=== PATIENT | female | born 1965 | race African-American/Black ===

== ENCOUNTER 2018-02-21 20:25 | Emergency (ER) | payer OTHER ==
[2018-02-21] MEDS ORDERED: MORPHINE SULFATE 4 MG INJ IV ONE ×2 (20:58→22:00)
[2018-02-21] MEDS ORDERED: Phenergan 25 MG INJ IV ONE ×2 (20:58→23:44)
[2018-02-21] MEDS ORDERED: Sodium Chloride 0.9% 1000 ML 1,000 ML IV STA ×2 (20:58→22:11)
--- NOTE | 2018-02-21 21:03 | ERPHSYRPT ---
- History of Present Illness Time Seen by Provider: 02/21/18 20:53 Historian: patient Exam Limitations: no limitations Patient Subjective Stated Complaint: Pt arrives to ER with c/o RLQ abdominal pain that began last night. pt points to pannus for pain that is asymmetrical with surigical scars from GB surgery and hernia repair. Also c/o nausea without vomiting. Also mentions "just a little bit" of dysuria. States last BM today and normal. Denies diarrhea or constipation. Also denies fever, hematuria or any other sx. Triage Nursing Assessment: pt is obese with surgical scars where pt points to pain on RLQ abdomen/pannus. Pt dyspneic with exertion and appears uncomfortable. Physician History: 52-year-old morbidly obese white female arrives with complaint of pain in her right lower quadrant symptoms since yesterday she states she has had nausea she denies vomiting she states that she's had some dysuria. Past medical history includes diabetes type 2, seizures, high blood pressure, breast cancer, anxiety, depression. Past surgical history includes cholecystectomy, hernia repair, hysterectomy, right shoulder surgery Timing/Duration: yesterday Activities at Onset: none Quality: cramping Abdominal Pain Onset Location: RLQ Pain Radiation: no radiation Severity of Pain-Max: moderate Severity of Pain-Current: moderate Modifying Factors: Improves With: nothing Associated Symptoms: nausea, No back, No chest pain, No diaphoresis, No diarrhea , No fever/chills, No fatigue, No headache, No heartburn, No loss of appetite, No neck pain, No rash, No shortness of breath, No syncope, No vomiting, No weakness Previous symptoms: no prior history Allergies/Adverse Reactions: dicyclomine [From Bentyl] Allergy (Verified 02/21/18 20:54) Rash fentanyl Allergy (Verified 02/21/18 20:54) Rash ketorolac [From Toradol] Allergy (Verified 02/21/18 20:54) Rash meperidine [From Demerol] Allergy (Verified 02/21/18 20:54) Rash tramadol Allergy (Verified 02/21/18 20:54) Rash acetaminophen [From Percocet] Adverse Reaction (Verified 02/21/18 20:54) Vomiting codeine Adverse Reaction (Verified 02/21/18 20:54) Vomiting metoclopramide [From Reglan] Adverse Reaction (Verified 02/21/18 20:54) chest pain ondansetron [From Zofran] Adverse Reaction (Verified 02/21/18 20:54) chest pain oxycodone [From Percocet] Adverse Reaction (Verified 02/21/18 20:54) Vomiting Sulfa (Sulfonamide Antibiotics) Adverse Reaction (Verified 02/21/18 20:54) Vomiting Home Medications: Enalapril Maleate 10 mg [Vasotec 10 MG] 10 mg PO DAILY 02/21/18 [History] Ergocalciferol (Vitamin D2) [Vitamin D2] 50,000 units PO WEEKLY 02/21/18 [ History] Insulin Aspart [NovoLOG Insulin] 32 units SQ TID 02/21/18 [History] Insulin Glargine,Hum.rec.anlog [Basaglar Kwikpen U-100] 55 units SQ BID [History] Linagliptin [Tradjenta] 5 mg PO DAILY 02/21/18 [History] Simvastatin [Simvastatin] 40 mg PO DAILY 02/21/18 [History] Venlafaxine HCl ER 75 mg [Effexor XR 75 MG] 75 mg PO DAILY 02/21/18 [ History] levETIRAcetam [Levetiracetam] 750 mg PO BID 02/21/18 [History] - Review of Systems Constitutional: No Fever, No Chills Eyes: No Symptoms Ears, Nose, & Throat: No Symptoms Respiratory: No Cough, No Dyspnea Cardiac: No Chest Pain, No Edema, No Syncope Abdominal/Gastrointestinal: Abdominal Pain, Nausea, No Vomiting, No Diarrhea, No Constipation, No Hematemesis, No Hematochezia, No Melena, No Dysphagia, No Appetite Changes Genitourinary Symptoms: Dysuria, Frequency, No Hematuria, No Hesitancy, No Incontinence, No Urgency, No Urinary Retention, No Flank Pain, No Menorrhagia, No , No Vaginal Bleeding, No Vaginal Discharge Musculoskeletal: No Back Pain, No Neck Pain Skin: No Rash Neurological: No Dizziness, No Focal Weakness, No Sensory Changes Psychological: No Symptoms Endocrine: No Symptoms All Other Systems: Reviewed and Negative - Past Medical History Pertinent Past Medical History: Yes Neurological History: Seizures ENT History: No Pertinent History Cardiac History: Hypertension Respiratory History: No Pertinent History Endocrine Medical History: Diabetes Type II Musculoskeletal History: No Pertinent History GI Medical History: No Pertinent History History: No Pertinent History Psycho-Social History: Anxiety, Depression Female Reproductive Disorders: Breast Cancer - Past Surgical History Past Surgical History: Yes Neuro Surgical History: No Pertinent History Cardiac: No Pertinent History Respiratory: No Pertinent History Gastrointestinal: Cholecystectomy, Hernia Repair Genitourinary: No Pertinent History Musculoskeletal: Joint Replacement, Orthopedic Surgery Female Surgical History: Hysterectomy Other Surgical History: right shoulder sugery, - Social History Smoking Status: Current every day smoker How long have you smoked: 20 Exposure to second hand smoke: Yes Drug Use: none Patient Lives Alone: No - Female History Hx Now: No - Nursing Vital Signs Nursing Vital Signs: Initial Vital Signs Temperature 99 F 02/21/18 20:39 Pulse Rate 104 H 02/21/18 20:39 Respiratory Rate 24 02/21/18 20:39 Blood Pressure 154/90 02/21/18 20:39 O2 Sat by Pulse Oximetry 96 02/21/18 20:39 Pain Scale Pain Intensity 8 - Physical Exam General Appearance: moderate distress Eye Exam: PERRL/EOMI, eyes nml inspection Ears, Nose, Throat Exam: normal ENT inspection, pharynx normal, moist mucous membranes Neck Exam: normal inspection, non-tender, supple, full range of motion Respiratory Exam: normal breath sounds, lungs clear, No respiratory distress Cardiovascular Exam: regular rate/rhythm, normal heart sounds Gastrointestinal/Abdomen Exam: soft, tenderness (rlq tenderness), other (multip[ le well healed abdominal incisions right lower quadrant), No mass Back Exam: normal inspection, normal range of motion, No CVA tenderness, No vertebral tenderness Extremity Exam: normal inspection, normal range of motion, pelvis stable Neurologic Exam: oriented x 3, cooperative, normal mood/affect, nml cerebellar function, sensation nml, No motor deficits SpO2: 96 Oxygen Delivery: Room Air - Course Nursing assessment & vital signs reviewed: Yes - CT Exams Abdomen/Pelvis CT Interpretation: Tele-radiologist Report (CT of the abdomen and pelvis impression large ventral hernia containing multiple loops of small bowel without definite evidence of obstruction. There may be some hernia mesh at the left lateral aspect of the hernia which may indicate prior failed repair . there is a low density soft tissue or high density fluid area along the mesh that could represent aqbdominal wall muscularure, scarring, or possibly a fluid collection , noter that the hernia is incompletely evaluated anteriorly secondary to obesity., with the patient's anterior abdomen not fitting entirely within the scanners field of view.) Ordered Tests: Active Orders 24 hr Category Date Time Status Accucheck STAT Care 02/21/18 22:05 Active Accucheck STAT Care 02/21/18 23:20 Active Accucheck STAT Care 02/22/18 00:43 Active IV Insertion STAT Care 02/21/18 20:57 Active ABDOMEN AND PELVIS W/0 CONTRAS [CT] Stat Exams 02/21/18 20:57 Taken AMYLASE Stat Lab 02/21/18 21:44 Completed ARTERIAL BLOOD GASES Stat Lab 02/21/18 22:53 Completed CBC W DIFF Stat Lab 02/21/18 21:44 Completed CMP Stat Lab 02/21/18 21:44 Completed LIPASE Stat Lab 02/21/18 21:44 Completed UA W/RFX UR CULTURE Stat Lab 02/21/18 21:45 Completed Medication Summary Discontinued Medications Generic Name Dose Route Start Last Admin Trade Name Vineetq PRN Reason Stop Dose Admin Sodium Chloride 1,000 mls @ 999 mls/hr 02/21/18 20:58 02/22/18 00:10 Sodium Chloride 0.9% 1000 Ml IV 02/21/18 21:58 Infused .Q1H1M STA Infusion Sodium Chloride Confirm 02/21/18 21:04 Sodium Chloride 0.9% 1000 Ml Administered 02/21/18 21:05 Dose 1,000 mls @ ud .ROUTE .STK-MED ONE Sodium Chloride 1,000 mls @ 999 mls/hr 02/21/18 22:11 02/22/18 00:09 Sodium Chloride 0.9% 1000 Ml IV 02/21/18 23:11 999 mls/hr .Q1H1M STA Administration Sodium Chloride Confirm 02/21/18 22:38 Sodium Chloride 0.9% 1000 Ml Administered 02/21/18 22:39 Dose 1,000 mls @ ud .ROUTE .STK-MED ONE Insulin Human Regular 7 unit 02/21/18 23:24 02/21/18 23:35 Novolin R IV 02/21/18 23:25 7 unit STAT ONE Administration Insulin Human Regular Confirm 02/21/18 23:31 Novolin R Administered 02/21/18 23:32 Dose 7 unit .ROUTE .STK-MED ONE Insulin Human Regular 5 unit 02/22/18 00:46 02/22/18 00:53 Novolin R IV 02/22/18 00:47 5 unit STAT ONE Administration Insulin Human Regular Confirm 02/22/18 00:51 Novolin R Administered 02/22/18 00:52 Dose 5 unit .ROUTE .STK-MED ONE Morphine Sulfate 4 mg 02/21/18 20:58 02/21/18 21:12 Morphine Sulfate 4 Mg Inj IV 02/21/18 20:59 4 mg STAT ONE Administration Morphine Sulfate Confirm 02/21/18 21:04 Morphine Sulfate 4 Mg Inj Administered 02/21/18 21:05 Dose 4 mg .ROUTE .STK-MED ONE Morphine Sulfate 4 mg 02/21/18 22:00 02/21/18 22:06 Morphine Sulfate 4 Mg Inj IV 02/21/18 22:01 4 mg STAT ONE Administration Morphine Sulfate Confirm 02/21/18 22:03 Morphine Sulfate 4 Mg Inj Administered 02/21/18 22:04 Dose 4 mg .ROUTE .STK-MED ONE Morphine Sulfate 2 mg 02/21/18 23:44 02/21/18 23:50 Morphine Sulfate 2 Mg Inj IV 02/21/18 23:45 2 mg STAT ONE Administration Morphine Sulfate Confirm 02/21/18 23:47 Morphine Sulfate 4 Mg Inj Administered 02/21/18 23:48 Dose 4 mg .ROUTE .STK-MED ONE Promethazine HCl 12.5 mg 02/21/18 20:58 02/21/18 21:13 Phenergan 25 Mg Inj IV 02/21/18 20:59 12.5 mg STAT ONE Administration Promethazine HCl Confirm 02/21/18 21:04 Phenergan 25 Mg Inj Administered 02/21/18 21:05 Dose 25 mg .ROUTE .STK-MED ONE Promethazine HCl 12.5 mg 02/21/18 23:44 02/21/18 23:50 Phenergan 25 Mg Inj IV 02/21/18 23:45 12.5 mg STAT ONE Administration Promethazine HCl Confirm 02/21/18 23:46 Phenergan 25 Mg Inj Administered 02/21/18 23:47 Dose 25 mg .ROUTE .STK-MED ONE Lab/Rad Data: Laboratory Result Diagrams 02/21/18 21:44 02/21/18 21:44 Laboratory Results 02/21/18 02/21/18 02/21/18 Range/Units 22:53 21:45 21:44 WBC (4.0-10.5) K/mm3 RBC (4.1-5.4) M/mm3 Hgb (12.0-16.0) gm/dl Hct (35-47) % MCV (78-100) fl MCH (26-32) pg MCHC (32-36) g/dl RDW (11.5-14.0) % Plt Count (150-450) K/mm3 MPV (6-9.5) fl Gran % (36.0-66.0) % Eos # (Auto) (0-0.5) Absolute Lymphs (auto) (1.0-4.6) Absolute Monos (auto) (0.0-1.3) Lymphocytes % (24.0-44.0) % Monocytes % (0.0-12.0) % Eosinophils % (0.00-5.0) % Basophils % (0.0-0.4) % Absolute Granulocytes (1.4-6.9) Basophils # (0-0.4) Puncture Site LEFT BRACHIAL pCO2 52 H (35-45) mmHg pO2 61 L (75-100) mmHg Base Excess 0.3 (-2.0-2.0) O2 Saturation 85.2 L (94-100) g/dF ABG pH 7.33 L (7.35-7.45) ABG HCO3 27.4 (22-28) ABG O2 Sat (Measured) 94.7 L (95-100) % Toby Test NOT APPLICABLE A-a Gradient 74 a/A Ratio 0.45 Hemoglobin 17.2 Carboxyhemoglobin 8.8 H* (0.0-6.9) % THgb Methemoglobin 1.2 L (1.4-1.5) % Temperature 37.0 C POC O2 Flow Rate 28 % Sodium 135 L (137-145) mmol/L Potassium 4.6 4.7 (3.5-5.1) mmol/L Chloride 96 L (98-107) mmol/L Carbon Dioxide 27 (22-30) mmol/L Anion Gap 16.8 H (5-15) MEQ/L BUN 13 (7-17) mg/dL Creatinine 0.73 (0.52-1.04) mg/dL Estimated GFR > 60.0 ML/MIN Glucose 545 H* (74-106) mg/dL Calcium 10.5 H (8.4-10.2) mg/dL Total Bilirubin 0.90 (0.2-1.3) mg/dL AST 15 (14-36) U/L ALT 17 (0-35) U/L Alkaline Phosphatase 169 H (38-126) U/L Serum Total Protein 7.8 (6.3-8.2) g/dL Albumin 4.0 (3.5-5.0) g/dL Amylase 55 (30-110) U/L Lipase 57 (23-300) U/L Ur Collection Type VOID Urine Color YELLOW (YELLOW) Urine Appearance CLEAR (CLEAR) Urine pH 6.0 (5-6) Ur Specific [place] 1.010 (1.005-1.025) Urine Protein NEGATIVE (Negative) Urine Ketones NEGATIVE (NEGATIVE) Urine Blood NEGATIVE (0-5) Dawood/ul Urine Nitrite NEGATIVE (NEGATIVE) Urine Bilirubin NEGATIVE (NEGATIVE) Urine Urobilinogen NORMAL (0-1) mg/dL Ur Leukocyte Esterase NEGATIVE (NEGATIVE) Urine Culture Reflexed NO (NO) Urine Glucose 1000 (NEGATIVE) mg/dL Specimen Received 02/21/18 2145 02/21/18 Range/Units 21:44 WBC 10.9 H (4.0-10.5) K/mm3 RBC 5.77 H (4.1-5.4) M/mm3 Hgb 17.7 H (12.0-16.0) gm/dl Hct 48.3 H (35-47) % MCV 83.7 (78-100) fl MCH 30.6 (26-32) pg MCHC 36.6 H (32-36) g/dl RDW 14.1 H (11.5-14.0) % Plt Count 164 (150-450) K/mm3 MPV 11.9 H (6-9.5) fl Gran % 60.0 (36.0-66.0) % Eos # (Auto) 0.85 H (0-0.5) Absolute Lymphs (auto) 2.62 (1.0-4.6) Absolute Monos (auto) 0.88 (0.0-1.3) Lymphocytes % 23.9 L (24.0-44.0) % Monocytes % 8.0 (0.0-12.0) % Eosinophils % 7.8 H (0.00-5.0) % Basophils % 0.3 (0.0-0.4) % Absolute Granulocytes 6.56 (1.4-6.9) Basophils # 0.03 (0-0.4) Puncture Site pCO2 (35-45) mmHg pO2 (75-100) mmHg Base Excess (-2.0-2.0) O2 Saturation (94-100) g/dF ABG pH (7.35-7.45) ABG HCO3 (22-28) ABG O2 Sat (Measured) (95-100) % Toby Test A-a Gradient a/A Ratio Hemoglobin Carboxyhemoglobin (0.0-6.9) % THgb Methemoglobin (1.4-1.5) % Temperature C POC O2 Flow Rate % Sodium (137-145) mmol/L Potassium (3.5-5.1) mmol/L Chloride (98-107) mmol/L Carbon Dioxide (22-30) mmol/L Anion Gap (5-15) MEQ/L BUN (7-17) mg/dL Creatinine (0.52-1.04) mg/dL Estimated GFR ML/MIN Glucose (74-106) mg/dL Calcium (8.4-10.2) mg/dL Total Bilirubin (0.2-1.3) mg/dL AST (14-36) U/L ALT (0-35) U/L Alkaline Phosphatase (38-126) U/L Serum Total Protein (6.3-8.2) g/dL Albumin (3.5-5.0) g/dL Amylase (30-110) U/L Lipase (23-300) U/L Ur Collection Type Urine Color (YELLOW) Urine Appearance (CLEAR) Urine pH (5-6) Ur Specific [place] (1.005-1.025) Urine Protein (Negative) Urine Ketones (NEGATIVE) Urine Blood (0-5) Dawood/ul Urine Nitrite (NEGATIVE) Urine Bilirubin (NEGATIVE) Urine Urobilinogen (0-1) mg/dL Ur Leukocyte Esterase (NEGATIVE) Urine Culture Reflexed (NO) Urine Glucose (NEGATIVE) mg/dL Specimen Received - Progress Progress: improved Progress Note: 02/21/18 22:13 Patient's glucose over 500 on chemistry, just did an Accu-Chek of 488. Patient receiving normal saline IV second liter ordered. Urine unremarkable other than glucose greater than [address] results patient has received IV morphine 4 mg 2 for pain. Patient has a large ventral hernia containing multiple loops of small bowel without definite evidence of obstruction on CT there may be hernia mesh of the lateral aspect of the hernia which may indicate prior failed repair. There is a low density soft tissue or high density fluid area along the mastectomy could represent abdominal wall musculature, scarring, or possibly a fluid collection the hernia was completely evaluated anteriorly secondary to obesity, with the anterior abdomen not feeling entirely within the scanner field of view. Patient is feeling better I have discussed with her her hernia she is aware of that she has had multiple surgeries secondary dairy to her abdominal hernia. She is planning on going home she states she is feeling better but she states she would like a little more pain medication. Patient's labs did show a glucose of 545 sodium 135 potassium 4.7 chloride 96 bicarbonate 27 BUN 13 creatinine 0.73. Patient's urine was negative except for 1000 mg/dL of glucose Patient white count 10.9 hemoglobin 17.7 hematocrit 48.3 platelets 164 patient will be given 2 L of normal saline IV. Patient has received morphine 4 mg IV 2 Will give her a third dose. She had received Phenergan 12.5 mg IV we'll consider a second dose of this as well or Zofran. him the patient's last Accu-Chek was 468 I have ordered 7 units of IV Humulin R . will recheck patient after her fluids have infused. She does not appera to be in acute distress at this time. 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 02/22/18 00:50 Patient's feeling better, asking when she can go home repeat Accu-Chek 388. Patient still receiving second liter of normal saline. Will give patient another 5 units of Humulin R IV. Plan to recheck in approximately a half an hour plan to discharge if remains stable and doing well. Patient states she will follow-up with her family doctor tomorrow. Patient states she lives in [facility]. 02/22/18 01:02 The patient is feeling much better. She wants to go home. Will plan to discharge and approximately one half hour. Patient states she covers her self with insulin for her sugars . she has been advised of her hyperglycemia and will cover herself. she also was noted to have elevated carboxyhemoglobin f 8.8 she is a smoker. she has been given oxygen in the emergency room, although it is felt that her increased carboxy hemoglobin is due to smoking, she has been advised to ensure her vehicle is well ventilated on her way home. 02/22/18 01:37 The patient's blood sugar is 385, she recieved 5 units of humulin r 30 IV 30 minutes ago. Patient wants to go home, she is in no distress she states she will cover her blood sugars with Insulin, will release - Departure Time of Disposition: 01:38 Departure Disposition: Home Clinical Impression: Right lower quadrant abdominal pain, Hyperglycemia Ventral hernia Qualifiers: Obstruction and gangrene presence: without obstruction or gangrene Qualified Code(s): K43.9 - Ventral hernia without obstruction or gangrene Condition: Fair Critical Care Time: No Referrals: DOCTOR,NO FAMILY [Primary Care Provider] - Additional Instructions: Return home. Plenty of fluids. Clear fluids only 24-48 hours if abdominal pain. Follow-up with your family doctor tomorrow morning. Return for acute distress or for severe symptoms. monitor your blood sugars carefully. Your carboxy hemoglobin level was elevated at this visit, this may be due to smoking, but, it is important that you make sure your vehicle is well ventilated on your way home. Cover your blood sugars as outlined by your family physician.
[2018-02-21] MEDS ORDERED: Sodium Chloride 0.9% 1000 ML 1,000 ML ONE ×2 (21:04→22:38)
[2018-02-21] MEDS ORDERED: Phenergan 25 MG INJ ONE ×2 (21:04→23:46)
[2018-02-21] MEDS ORDERED: MORPHINE SULFATE 4 MG INJ ONE ×3 (21:04→23:47)
[2018-02-21 21:48] LABS: BASOPHIL % 0.3 % (0.0-0.4); Basophil (Absolute #) 0.03 (0-0.4); Eosinophil % 7.8 % (0.00-5.0); Eosinophil (Absolute #) 0.85 (0-0.5); Granulocyte Absolute (ANC) 6.56 (1.4-6.9); Hematocrit 48.3 % (35-47); Hemoglobin 17.7 gm/dl (12.0-16.0); Lymphocyte (Absolute #) 2.62 (1.0-4.6); Lymphocytes % 23.9 % (24.0-44.0); Mean Cell Volume 83.7 fl (78-100); Mean Corpuscular Hgb Concent. 36.6 g/dl (32-36); Mean Platelet Volume 11.9 fl (6-9.5); Monocyte (Absolute #) 0.88 (0.0-1.3); Platelet Count 164 K/mm3 (150-450); Red Blood Count 5.77 M/mm3 (4.1-5.4); Red Cell Distribution Width 14.1 % (11.5-14.0); White Blood Count 10.9 K/mm3 (4.0-10.5)
[2018-02-21 21:50] LABS: Appearance CLEAR (CLEAR); Bilirubin NEGATIVE (NEGATIVE); Blood NEGATIVE Ery/ul (0-5); Glucose 1000 mg/dL (NEGATIVE); Ketones NEGATIVE (NEGATIVE); Leukocyte Esterase NEGATIVE (NEGATIVE); Nitrite NEGATIVE (NEGATIVE); Protein,Urine Dip NEGATIVE (Negative); Urobilinogen NORMAL mg/dL (0-1)
[2018-02-21 21:52] LABS: Mean Corpuscular Hemoglobin 30.6 pg (26-32)
[2018-02-21 22:02] LABS: ALKALINE PHOSPHATASE 169 U/L (38-126); AMYLASE 55 U/L (30-110); ANION GAP 16.8 MEQ/L (5-15); BLOOD UREA NITROGEN 13 mg/dL (7-17); CHLORIDE 96 mmol/L (98-107); Calcium 10.5 mg/dL (8.4-10.2); Carbon Dioxide 27 mmol/L (22-30); Creatinine 1 0.73 mg/dL (0.52-1.04); LIPASE 57 U/L (23-300); Potassium 4.7 mmol/L (3.5-5.1); SGOT/AST 15 U/L (14-36); SGPT/ALT 17 U/L (0-35); SODIUM 135 mmol/L (137-145); Total Protein 7.8 g/dL (6.3-8.2)
[2018-02-21 22:11] LABS: Glucose 545 mg/dL (74-106)
[2018-02-21 23:00] VITALS: PULSE 103
[2018-02-21 23:00] LABS: A-aADO2 74; ABG HEMOGLOBIN 17.2; ABG POTASSIUM 4.6 (3.5-5.1); ARTERIAL BLD GAS O2 SATURATION 94.7 % (95-100); ARTERIAL BLOOD GAS BASE EXCESS 0.3 (-2.0-2.0); ARTERIAL BLOOD GAS FIO2 28 %; ARTERIAL BLOOD GAS PCO2 52 mmHg (35-45); ARTERIAL BLOOD GAS PO2 61 mmHg (75-100); ARTERIAL BLOOD GAS pH 7.33 (7.35-7.45); HCO3- 27.4 (22-28); HGB O2 SAT 85.2 g/dF (94-100); Methhemoglobin 1.2 % (1.4-1.5); paO2 pAO1 0.45
[2018-02-21 23:01] LABS: ABG SITE LEFT BRACHIAL; CARBOXYHEMOGLOBIN 8.8 % THgb (0.0-6.9)
[2018-02-21] MEDS ORDERED: NovoLIN R IV ONE (23:24)
[2018-02-21] MEDS ORDERED: NovoLIN R ONE (23:31)
[2018-02-21] MEDS ORDERED: MORPHINE SULFATE 2 MG INJ IV ONE (23:44)
[2018-02-22] MEDS ORDERED: NovoLIN R IV ONE (00:46)
[2018-02-22] MEDS ORDERED: NovoLIN R ONE (00:51)
[2018-02-22 01:37] VITALS: BP 173/91
[2018-02-22 01:39] VITALS: O2SAT 96
--- NOTE | 2018-02-22 09:03 | XRAY ---
Indication: Right upper quadrant pain. Multiple contiguous axial images obtained through the abdomen and pelvis without contrast as ordered. Comparison: None. Lung bases are clear. Heart is not enlarged. Study is degraded by patient body habitus. Portion of the anterior abdomen could not be included in the [id number]. There is a failed infraumbilical ventral hernia repair with large [place] hernia defect with herniated bowel loops. No incarceration/obstruction. Remaining noncontrasted stomach and bowel loops appear nonobstructed. Previous reported hysterectomy and cholecystectomy. Appendix not seen. No free fluid/air. Remaining liver, pancreas, spleen, adrenal glands, kidneys, ureters, and bladder appear unremarkable for noncontrast exam. Minimal aortoiliac calcifications without AAA. Osseous structures intact with mild multilevel degenerative spondylosis. Impression: 1. Limited exam due to patient body habitus. 2. Failed infraumbilical ventral hernia repair with large ventral hernia and herniated bowel loops without complications. Comment: Preliminary interpretation was made by [facility]. No critical discrepancy. CT DI 23.68
== END 2018-02-22 01:52 | disposition home or self-care (01) ==
LOC: ED 20:25
DX: K43.9 Ventral hernia without obstruction or gangrene (principal); R10.31 Right lower quadrant pain; Z79.899 Other long term (current) drug therapy; E11.65 Type 2 diabetes mellitus with hyperglycemia; Z79.4 Long term (current) use of insulin; R11.0 Nausea; R79.81 Abnormal blood-gas level
CPT/HCPCS: 36000; 36415; 36600; 74176; 80053; 81002; 82150; 82375; 82803; 82962; 83690; 85025; 96360; 96361; 96374; 96375; 96376; 99285; J2270; J2550; A9270-GY

== ENCOUNTER 2020-02-08 22:35 | Emergency (ER) | payer SELFPAY ==
[2020-02-08] MEDS ORDERED: Sodium Chloride 0.9% 1000 ML 1,000 ML IV STA (22:57)
[2020-02-08] MEDS ORDERED: MORPHINE SULFATE 4 MG INJ IV ONE (22:57)
[2020-02-08] MEDS ORDERED: Phenergan 25 MG INJ IV ONE (22:57)
[2020-02-08] MEDS ORDERED: Sodium Chloride 0.9% 1000 ML 1,000 ML ONE (23:22)
[2020-02-08] MEDS ORDERED: MORPHINE SULFATE 4 MG INJ ONE (23:23)
[2020-02-08] MEDS ORDERED: Phenergan 25 MG INJ ONE (23:23)
[2020-02-08 23:24] LABS: Absolute Neutrophil Ct (ANC) 6.06 (1.4-6.9); BASOPHIL % 0.2 % (0.0-0.4); Basophil (Absolute #) 0.02 (0-0.4); Eosinophil % 4.8 % (0.00-5.0); Hematocrit 45.3 % (35-47); Hemoglobin 16.1 gm/dl (12.0-16.0); Lymphocyte (Absolute #) 2.93 (1.0-4.6); Lymphocytes % 27.9 % (24.0-44.0); Mean Cell Volume 88.1 fl (78-100); Mean Corpuscular Hemoglobin 31.3 pg (26-32); Mean Corpuscular Hgb Concent. 35.5 g/dl (32-36); Mean Platelet Volume 10.1 fl (7.5-11.0); Monocyte (Absolute #) 0.98 (0.0-1.3); Monocytes % 9.3 % (0.0-12.0); Neutrophil % 57.8 % (36.0-66.0); Platelet Count 212 K/mm3 (150-450); Red Blood Count 5.14 M/mm3 (4.1-5.4); Red Cell Distribution Width 14.2 % (11.5-14.0); White Blood Count 10.5 K/mm3 (4.0-10.5)
[2020-02-08 23:34] LABS: ALBUMIN 3.9 g/dL (3.5-5.0); ALKALINE PHOSPHATASE 119 U/L (38-126); ANION GAP 12.6 MEQ/L (5-15); BLOOD UREA NITROGEN 16 mg/dL (7-17); CHLORIDE 107 mmol/L (98-107); Carbon Dioxide 26 mmol/L (22-30); Creatinine 1 0.81 mg/dL (0.52-1.04); Glucose 218 mg/dL (74-106); LIPASE 40 U/L (23-300); Potassium 4.3 mmol/L (3.5-5.1); SGOT/AST 33 U/L (14-36); SGPT/ALT 28 U/L (0-35); SODIUM 141 mmol/L (137-145); Total Protein 7.6 g/dL (6.3-8.2)
[2020-02-08 23:35] LABS: Appearance CLEAR (CLEAR); Bilirubin NEGATIVE (NEGATIVE); Blood NEGATIVE Ery/ul (0-5); Glucose >=500 mg/dL (NEGATIVE); Ketones NEGATIVE (NEGATIVE); Leukocyte Esterase NEGATIVE (NEGATIVE); Nitrite NEGATIVE (NEGATIVE); Protein,Urine Dip NEGATIVE (Negative); Specific Gravity 1.012 (1.005-1.025); Urobilinogen NEGATIVE mg/dL (0-1)
--- NOTE | 2020-02-08 23:36 | ERPHSYRPT ---
- History of Present Illness Time Seen by Provider: 02/08/20 22:53 Historian: patient Patient Subjective Stated Complaint: pt c/o flank pain and abd pain Triage Nursing Assessment: pt c/o flank pain across entire back, radiating to abd. Pt is obese, had hypoactive/faint bs x4 quad, tender on palpation. Pt denies any hx of kidney stones. Physician History: 54 years old female morbidly obese with multiple comorbidities including insulin -dependent diabetes mellitus, multiple abdominal surgeries in the past with ventral hernias presented in the ER with chief complaint of bilateral flank pain with radiation to the anterior abdomen for the last 3 to 4 days, gradually worsening, moderate to severe intensity, aggravated with movements and palpation and associated with nausea and vomiting. Bowel movement today. No fever or chills reported. No difficulty urination. Timing/Duration: day(s) (4), gradual onset, worse Activities at Onset: rest Quality: sharpness, stabbing Abdominal Pain Onset Location: generalized abdomen, flank Pain Radiation: flank Severity of Pain-Max: severe Severity of Pain-Current: severe Modifying Factors: Improves With: movement, palpation Associated Symptoms: nausea, vomiting Allergies/Adverse Reactions: dicyclomine [From Bentyl] Allergy (Verified 02/21/18 20:54) Rash fentanyl Allergy (Verified 02/21/18 20:54) Rash ketorolac [From Toradol] Allergy (Verified 02/21/18 20:54) Rash meperidine [From Demerol] Allergy (Verified 02/21/18 20:54) Rash tramadol Allergy (Verified 02/21/18 20:54) Rash acetaminophen [From Percocet] Adverse Reaction (Verified 02/21/18 20:54) Vomiting codeine Adverse Reaction (Verified 02/21/18 20:54) Vomiting metoclopramide [From Reglan] Adverse Reaction (Verified 02/21/18 20:54) chest pain ondansetron [From Zofran] Adverse Reaction (Verified 02/21/18 20:54) chest pain oxycodone [From Percocet] Adverse Reaction (Verified 02/21/18 20:54) Vomiting Sulfa (Sulfonamide Antibiotics) Adverse Reaction (Verified 02/21/18 20:54) Vomiting Home Medications: Enalapril Maleate 10 mg [Vasotec 10 MG] 10 mg PO DAILY 02/21/18 [History] Ergocalciferol (Vitamin D2) [Vitamin D2] 50,000 units PO WEEKLY 02/21/18 [ History] Insulin Aspart [NovoLOG Insulin] 32 units SQ TID 02/21/18 [History] Insulin Glargine,Hum.rec.anlog [Basaglar Kwikpen U-100] 55 units SQ BID [History] Linagliptin [Tradjenta] 5 mg PO DAILY 02/21/18 [History] Simvastatin 40 mg PO DAILY 02/21/18 [History] Venlafaxine HCl ER 75 mg [Effexor XR 75 MG] 75 mg PO DAILY 02/21/18 [ History] levETIRAcetam [Levetiracetam] 750 mg PO BID 02/21/18 [History] Hx Tetanus, Diphtheria Vaccination/Date Given: No Hx Influenza Vaccination/Date Given: Yes Hx Pneumococcal Vaccination/Date Given: Yes Immunizations Up to Date: No Travel Risk - International Travel Have you traveled outside of the country in past 3 weeks: No Have you or anyone close to you been diagnosed with or: No Do your reside in a community with a known COVID-19 case?: Yes If Yes where:: [place] - Coronavirus Screening Has patient experienced Coronavirus symptoms: No - Review of Systems Constitutional: No Symptoms Eyes: No Symptoms Ears, Nose, & Throat: No Symptoms Respiratory: No Symptoms Cardiac: No Symptoms Abdominal/Gastrointestinal: Abdominal Pain, Nausea, Vomiting Genitourinary Symptoms: No Symptoms Musculoskeletal: Back Pain Skin: No Symptoms Neurological: No Symptoms Psychological: No Symptoms Endocrine: No Symptoms Hematologic/Lymphatic: No Symptoms Immunological/Allergic: No Symptoms - Past Medical History Pertinent Past Medical History: Yes Neurological History: Seizures ENT History: No Pertinent History Cardiac History: High Cholesterol, Hypertension Respiratory History: No Pertinent History Endocrine Medical History: Diabetes Type II Musculoskeletal History: No Pertinent History GI Medical History: No Pertinent History History: No Pertinent History Psycho-Social History: Anxiety, Depression Female Reproductive Disorders: Breast Cancer - Past Surgical History Past Surgical History: Yes Neuro Surgical History: No Pertinent History Cardiac: No Pertinent History Respiratory: No Pertinent History Gastrointestinal: Cholecystectomy, Hernia Repair Genitourinary: No Pertinent History Musculoskeletal: Joint Replacement, Orthopedic Surgery Female Surgical History: Hysterectomy, Mastectomy Other Surgical History: right shoulder sugery, - Social History Smoking Status: Current every day smoker How long have you smoked: 25 yrs Exposure to second hand smoke: No Drug Use: none Patient Lives Alone: No - Nursing Vital Signs Nursing Vital Signs: Initial Vital Signs Temperature 98.8 F 02/08/20 22:52 Pulse Rate 104 H 02/08/20 22:52 Respiratory Rate 19 02/08/20 22:52 Blood Pressure 155/90 02/08/20 22:52 O2 Sat by Pulse Oximetry 96 02/08/20 22:52 Pain Scale Pain Intensity 9 - Physical Exam General Appearance: no apparent distress, alert Eye Exam: PERRL/EOMI, eyes nml inspection Ears, Nose, Throat Exam: normal ENT inspection, pharynx normal Neck Exam: normal inspection, non-tender, supple, full range of motion Respiratory Exam: normal breath sounds, lungs clear Cardiovascular Exam: regular rate/rhythm, normal heart sounds Gastrointestinal/Abdomen Exam: soft, tenderness, guarding (Generalized), No distention Back Exam: normal inspection, CVA tenderness, other (No midline tenderness) Extremity Exam: normal inspection Neurologic Exam: alert, oriented x 3, cooperative Skin Exam: normal color SpO2 Interpretation: normal SpO2: 96 O2 Delivery: Room Air - Course Nursing assessment & vital signs reviewed: Yes Ordered Tests: Active Orders 24 hr Category Date Time Status IV Insertion STAT Care 02/08/20 22:57 Active Isolation, Initiate & Maintain Q4H Care 02/08/20 23:03 Active NPO (ED) STAT Care 02/08/20 22:57 Active ABDOMEN AND PELVIS W CONTRAST [CT] Stat Exams 02/08/20 22:57 Taken CBC W DIFF Stat Lab 02/08/20 23:15 Completed CMP Stat Lab 02/08/20 23:15 Completed LIPASE Stat Lab 02/08/20 23:15 Completed Lactic Acid Stat Lab 02/08/20 23:20 Completed UA W/RFX UR CULTURE Stat Lab 02/08/20 23:15 Completed Medication Summary Discontinued Medications Generic Name Dose Route Start Last Admin Trade Name Freq PRN Reason Stop Dose Admin Sodium Chloride 1,000 mls @ 999 mls/hr 02/08/20 22:57 02/08/20 23:26 Sodium Chloride 0.9% 1000 Ml IV 02/08/20 23:57 999 mls/hr .Q1H1M STA Administration Sodium Chloride Confirm 02/08/20 23:22 Sodium Chloride 0.9% 1000 Ml Administered 02/08/20 23:23 Dose 1,000 mls @ ud .ROUTE .STK-MED ONE Morphine Sulfate 4 mg 02/08/20 22:57 02/08/20 23:28 Morphine Sulfate 4 Mg Inj IV 02/08/20 22:58 4 mg STAT ONE Administration Morphine Sulfate Confirm 02/08/20 23:23 Morphine Sulfate 4 Mg Inj Administered 02/08/20 23:24 Dose 4 mg .ROUTE .STK-MED ONE Morphine Sulfate 4 mg 02/09/20 00:22 02/09/20 00:27 Morphine Sulfate 4 Mg Inj IV 02/09/20 00:23 4 mg STAT ONE Administration Morphine Sulfate Confirm 02/09/20 00:22 Morphine Sulfate 4 Mg Inj Administered 02/09/20 00:23 Dose 4 mg .ROUTE .STK-MED ONE Promethazine HCl 12.5 mg 02/08/20 22:57 02/08/20 23:28 Phenergan 25 Mg Inj IV 02/08/20 22:58 12.5 mg STAT ONE Administration Promethazine HCl Confirm 02/08/20 23:23 Phenergan 25 Mg Inj Administered 02/08/20 23:24 Dose 25 mg .ROUTE .STK-MED ONE Lab/Rad Data: Laboratory Result Diagrams 02/08/20 23:15 02/08/20 23:15 Laboratory Results 02/08/20 02/08/20 02/08/20 Range/Units 23:20 23:15 23:15 WBC (4.0-10.5) K/mm3 RBC (4.1-5.4) M/mm3 Hgb (12.0-16.0) gm/dl Hct (35-47) % MCV (78-100) fl MCH (26-32) pg MCHC (32-36) g/dl RDW (11.5-14.0) % Plt Count (150-450) K/mm3 MPV (7.5-11.0) fl Gran % (36.0-66.0) % Eos # (Auto) (0-0.5) Absolute Lymphs (auto) (1.0-4.6) Absolute Monos (auto) (0.0-1.3) Lymphocytes % (24.0-44.0) % Monocytes % (0.0-12.0) % Eosinophils % (0.00-5.0) % Basophils % (0.0-0.4) % Absolute Granulocytes (1.4-6.9) Basophils # (0-0.4) Sodium 141 (137-145) mmol/L Potassium 4.3 (3.5-5.1) mmol/L Chloride 107 (98-107) mmol/L Carbon Dioxide 26 (22-30) mmol/L Anion Gap 12.6 (5-15) MEQ/L BUN 16 (7-17) mg/dL Creatinine 0.81 (0.52-1.04) mg/dL Estimated GFR > 60.0 ML/MIN Glucose 218 H (74-106) mg/dL Lactic Acid 1.6 (0.4-2.0) Calcium 10.0 (8.4-10.2) mg/dL Total Bilirubin 0.80 (0.2-1.3) mg/dL AST 33 (14-36) U/L ALT 28 (0-35) U/L Alkaline Phosphatase 119 (38-126) U/L Serum Total Protein 7.6 (6.3-8.2) g/dL Albumin 3.9 (3.5-5.0) g/dL Lipase 40 (23-300) U/L Urine Color STRAW (YELLOW) Urine Appearance CLEAR (CLEAR) Urine pH 6.0 (5-6) Ur Specific Hellier 1.012 (1.005-1.025) Urine Protein NEGATIVE (Negative) Urine Ketones NEGATIVE (NEGATIVE) Urine Blood NEGATIVE (0-5) Dawood/ul Urine Nitrite NEGATIVE (NEGATIVE) Urine Bilirubin NEGATIVE (NEGATIVE) Urine Urobilinogen NEGATIVE (0-1) mg/dL Ur Leukocyte Esterase NEGATIVE (NEGATIVE) Urine WBC (Auto) NONE (0-5) /HPF Urine RBC (Auto) NONE (0-2) /HPF U Epithel Cells (Auto) NONE (FEW) /HPF Urine Bacteria (Auto) NONE (NEGATIVE) /HPF Urine Culture Reflexed NO (NO) Urine Glucose >=500 (NEGATIVE) mg/dL 02/08/20 Range/Units 23:15 WBC 10.5 (4.0-10.5) K/mm3 RBC 5.14 (4.1-5.4) M/mm3 Hgb 16.1 H (12.0-16.0) gm/dl Hct 45.3 (35-47) % MCV 88.1 (78-100) fl MCH 31.3 (26-32) pg MCHC 35.5 (32-36) g/dl RDW 14.2 H (11.5-14.0) % Plt Count 212 (150-450) K/mm3 MPV 10.1 (7.5-11.0) fl Gran % 57.8 (36.0-66.0) % Eos # (Auto) 0.50 (0-0.5) Absolute Lymphs (auto) 2.93 (1.0-4.6) Absolute Monos (auto) 0.98 (0.0-1.3) Lymphocytes % 27.9 (24.0-44.0) % Monocytes % 9.3 (0.0-12.0) % Eosinophils % 4.8 (0.00-5.0) % Basophils % 0.2 (0.0-0.4) % Absolute Granulocytes 6.06 (1.4-6.9) Basophils # 0.02 (0-0.4) Sodium (137-145) mmol/L Potassium (3.5-5.1) mmol/L Chloride (98-107) mmol/L Carbon Dioxide (22-30) mmol/L Anion Gap (5-15) MEQ/L BUN (7-17) mg/dL Creatinine (0.52-1.04) mg/dL Estimated GFR ML/MIN Glucose (74-106) mg/dL Lactic Acid (0.4-2.0) Calcium (8.4-10.2) mg/dL Total Bilirubin (0.2-1.3) mg/dL AST (14-36) U/L ALT (0-35) U/L Alkaline Phosphatase (38-126) U/L Serum Total Protein (6.3-8.2) g/dL Albumin (3.5-5.0) g/dL Lipase (23-300) U/L Urine Color (YELLOW) Urine Appearance (CLEAR) Urine pH (5-6) Ur Specific Hellier (1.005-1.025) Urine Protein (Negative) Urine Ketones (NEGATIVE) Urine Blood (0-5) Dawood/ul Urine Nitrite (NEGATIVE) Urine Bilirubin (NEGATIVE) Urine Urobilinogen (0-1) mg/dL Ur Leukocyte Esterase (NEGATIVE) Urine WBC (Auto) (0-5) /HPF Urine RBC (Auto) (0-2) /HPF U Epithel Cells (Auto) (FEW) /HPF Urine Bacteria (Auto) (NEGATIVE) /HPF Urine Culture Reflexed (NO) Urine Glucose (NEGATIVE) mg/dL - Progress Progress: improved, pain not gone completely, re-examined Progress Note: 02/09/20 01:06 54 years old is evaluated for flank pain with generalized abdominal pain. She is given IV fluid and pain medication, on reevaluation pain is better. She has a normal white count, grossly unremarkable chemistries, normal lipase and lactic acid. She has a CT abdomen pelvis with contrast done which did not show any acute intra-abdominal pathology but does have some incidental finding with pulmonary nodule for which she is recommended follow-up outpatient with her primary care. On reevaluation patient abdominal exam did not show any guarding but have minimal tenderness. She is offered narcotic pain medication but she does not want anything to go home. She is advised to take Tylenol which she has at home as needed and will give some Phenergan to go home. At this point I do not think she needs any further testing in the ER and does not need admission and is stable for discharge. I have discussed with patient at length about symptoms/signs of worsening needing return to ER which she seems understanding. Counseled pt/family regarding: lab results, diagnosis, need for follow-up, rad results, smoking cessation - Departure Departure Disposition: Home Clinical Impression: Abdominal pain Qualifiers: Abdominal location: generalized Qualified Code(s): R10.84 - Generalized abdominal pain Condition: Stable Critical Care Time: No Referrals: DOCTOR,NO FAMILY [Primary Care Provider] - Instructions: Flank Pain, Acute Abdomen (Belly Pain), Adult (DC) Additional Instructions: Take Tylenol as needed. Follow-up with your primary care Dr. Vega at [facility] for reevaluation and may need a PET scan/CT scan/MRI for further evaluation of lung nodule. Take Phenergan as needed. Return to ER for any worsening. Prescriptions: Promethazine HCl 25 mg [Phenergan 25 mg] 25 mg PO Q8H PRN PRN #10 tablet PRN Reason: Nausea
[2020-02-09] MEDS ORDERED: MORPHINE SULFATE 4 MG INJ ONE (00:22)
[2020-02-09] MEDS ORDERED: MORPHINE SULFATE 4 MG INJ IV ONE (00:22)
[2020-02-09 01:10] VITALS: BP 148/84; PULSE 95; O2SAT 96
--- NOTE | 2020-02-09 08:55 | XRAY ---
Indication: Abdomen pain 5 days. Multiple contiguous axial images obtained through the abdomen and pelvis using 80 cc Isovue 370 contrast only. Comparison: February 21, 2018. Lung bases demonstrates partially visualized 1 cm indeterminant right midlung noncalcified nodule not previously imaged. No infiltrate or effusion. Heart is not enlarged. Noncontrasted stomach and bowel loops remain nonobstructed. Stable large failed infraumbilical ventral hernia repair again with herniated bowel loops. No incarceration/obstruction. Stable 20.6 cm fatty of hepatomegaly, cholecystectomy, and hysterectomy. No free fluid/air. Remaining liver, pancreas, spleen, adrenal glands, kidneys, ureters, and bladder appear unremarkable. Aorta is normal in course and caliber. No AAA or pathologic retroperitoneal lymphadenopathy. Osseous structures intact again with mild degenerative changes throughout the thoracolumbar spine. Impression: 1. Stable large failed infraumbilical ventral hernia repair again with herniated bowel loops. No incarceration/obstruction. 2. Right midlung indeterminant noncalcified nodule. Comparison studies would be of benefit if performed elsewhere. If not, recommend CT chest to establish baseline with follow-up per Fleischner guidelines. 3. Stable fatty hepatomegaly. Comment: Preliminary interpretation was made by [facility]. No critical discrepancy.
== END 2020-02-09 01:17 | disposition home or self-care (01) ==
LOC: ED 22:35
DX: R10.84 Generalized abdominal pain (principal); R11.2 Nausea with vomiting, unspecified; I10 Essential (primary) hypertension; E78.00 Pure hypercholesterolemia, unspecified; G40.909 Epilepsy, unspecified, not intractable, without status epilepticus; E11.9 Type 2 diabetes mellitus without complications; F41.9 Anxiety disorder, unspecified; F32.9 Major depressive disorder, single episode, unspecified; Z85.3 Personal history of malignant neoplasm of breast; Z72.0 Tobacco use
CPT/HCPCS: 36000; 36415; 74177; 80053; 81001; 83605; 83690; 85025; 96360; 96374; 96375; 96376; 99284; J2270; J2550